=== PATIENT | male | born 1960 | race African-American/Black ===

== ENCOUNTER 2022-04-27 03:34 | Inpatient (IN) | payer MEDICARE, MEDICAID ==
[~2022-04-27] VITALS: Ht 175.3 cm; Wt 71.2 kg
[2022-04-27] VITALS (16 sets, daily range): BP systolic 105–133; BP diastolic 62–101
[2022-04-27] MEDS ORDERED: SODIUM CHLORIDE 0.9% 1,000 ML IV ONE ×2 (05:30→07:15)
[2022-04-27 06:09] LABS: HEMATOCRIT. 22.4 % (42.0-52.0); MEAN CORPUSCULAR HEMOGLOBIN 19.2 pg (28.0-32.0); MEAN CORPUSCULAR VOLUME 63.8 fL (80.0-94.0); MEAN PLATELET VOLUME 7.7 fl (7.4-10.4); PLATELET 363 x1000/uL (130-400); RED BLOOD CELL COUNT 3.51 mill/uL (4.7-6.1); RED CELL DISTRIBUTION WIDTH 21.9 % (11.6-14.6)
[2022-04-27 06:20] LABS: HEMOGLOBIN. 6.8 g/dL (14.0-18.0)
[2022-04-27 06:36] LABS: CREATINE KINASE 79 IU/L (39-308)
[2022-04-27 06:56] LABS: CHLORIDE 73 mEq/L (98-107)
[2022-04-27] MEDS ORDERED: PANTOPRAZOLE SODIUM 40 MG/VIAL IV ONE (07:00)
[2022-04-27] MEDS ORDERED: ONDANSETRON HCL 4MG/2ML INJ IV ONE (07:15)
[2022-04-27 07:47] LABS: PLATELET ESTIMATE NORMAL
[2022-04-27] MEDS ORDERED: POTASSIUM CHLORIDE 20MEQ TABLET SR PO ONE (08:00)
[2022-04-27] MEDS ORDERED: POTASSIUM CHLORIDE INJ 40 MEQ in DEXT 5% WATER 250 ML IV ONE (08:00)
[2022-04-27] MEDS: KCL 20MEQ/100ML PREMIX 100 ML IV SCH ×2 (08:30→13:54)
[2022-04-27 08:51] LABS: ETHANOL BLOOD 225 mg/dL
[2022-04-27] MEDS ORDERED: OCTREOTIDE 1,000 MCG in SODIUM CHLORIDE 0.9% 98 ML IV SCH (09:15)
[2022-04-27] MEDS ORDERED: DEXT 5%/0.45% NACL KCL 10MEQ/L 1,000 ML IV ONE (09:15)
[2022-04-27] MEDS ORDERED: PANTOPRAZOLE 80 MG in SODIUM CHLORIDE 0.9% 100 ML IV SCH ×2 (09:30→09:45)
[2022-04-27] MEDS ORDERED: LORAZEPAM 2MG/ML CPJ IV PRN (11:15)
[2022-04-27] MEDS: ONDANSETRON HCL 4MG/2ML INJ IV PRN ×2 (11:32→21:40)
[2022-04-27] MEDS ORDERED: FOLIC ACID 1 MG, THIAMINE HCL 100 MG, MVI, ADULT NO.1 10 ML in DEXTROSE 5% WATER 1,000 ML IV ONE ×4 (12:30)
[2022-04-27] MEDS: OCTREOTIDE 1,000 MCG in SODIUM CHLORIDE 0.9% 98 ML IV SCH (15:04)
[2022-04-27] MEDS ORDERED: POTASSIUM CHLORIDE 20MEQ TABLET SR PO NR ×2 (17:23→20:30)
[2022-04-27 17:34] LABS: HEMATOCRIT 24.8 % (42.0-52.0); HEMOGLOBIN 7.9 g/dL (14.0-18.0)
[2022-04-27] MEDS: PANTOPRAZOLE SODIUM 40 MG/VIAL IV SCH (17:46)
[2022-04-27] MEDS: CEFTRIAXONE 1,000 MG in DEXTROSE 5% WATER 50 ML IV SCH (21:41)
[2022-04-27] MEDS: KCL 20MEQ/100ML PREMIX 100 ML IV NR (21:41)
[2022-04-28] VITALS (7 sets, daily range): BP systolic 90–124; BP diastolic 58–68
[2022-04-28] MEDS: KCL 20MEQ/100ML PREMIX 100 ML IV NR (02:33)
[2022-04-28 06:16] LABS: HEMATOCRIT. 25.2 % (42.0-52.0); HEMOGLOBIN. 8.1 g/dL (14.0-18.0); MEAN CORPUSCULAR HEMOGLOBIN 22.3 pg (28.0-32.0); MEAN CORPUSCULAR VOLUME 69.4 fL (80.0-94.0); MEAN PLATELET VOLUME 7.8 fl (7.4-10.4); PLATELET 300 x1000/uL (130-400); RED BLOOD CELL COUNT 3.63 mill/uL (4.7-6.1); RED CELL DISTRIBUTION WIDTH 25.9 % (11.6-14.6)
[2022-04-28] MEDS: OCTREOTIDE 1,000 MCG in SODIUM CHLORIDE 0.9% 98 ML IV SCH (06:39)
[2022-04-28 06:51] LABS: CHLORIDE 84 mEq/L (98-107); TOTAL IRON BINDING CAPACITY 304 ug/dL (250-450)
[2022-04-28] MEDS: PANTOPRAZOLE SODIUM 40 MG/VIAL IV SCH ×2 (08:21→18:09)
[2022-04-28 15:27] LABS: CLARITY URINE CLEAR (CLEAR); COLOR URINE YELLOW (YELLOW); KETONES URINE NEGATIVE (NEGATIVE); LEUKOCYTE ESTERASE URINE TRACE (NEGATIVE); NITRITE URINE NEGATIVE (NEGATIVE); OCCULT BLOOD URINE NEGATIVE (NEGATIVE); PH URINE 8.5 (4.5-8.0); PROTEIN URINE TRACE (NEGATIVE); SPECIFIC GRAVITY URINE 1.016 (1.005-1.030)
[2022-04-28 15:53] LABS: *AMPHETAMINES SCREEN URINE NEGATIVE (NEGATIVE); *BARBITURATES SCREEN URINE NEGATIVE (NEGATIVE); *BENZODIAZEPINES SCREEN URINE NEGATIVE (NEGATIVE); *COCAINE SCREEN URINE NEGATIVE (NEGATIVE); CANNABINOID URINE SCREEN NEGATIVE (NEGATIVE); METHADONE URINE SCREEN NEGATIVE (NEGATIVE); OPIATES URINE SCREEN NEGATIVE (NEGATIVE); PHENCYCLIDINE URINE SCREEN NEGATIVE (NEGATIVE)
[2022-04-28] MEDS: CEFTRIAXONE 1,000 MG in DEXTROSE 5% WATER 50 ML IV SCH (20:59)
[2022-04-28 21:33] LABS: PLATELET ESTIMATE NORMAL
[2022-04-29] VITALS (7 sets, daily range): BP systolic 97–114; BP diastolic 57–73
[2022-04-29] MEDS: OCTREOTIDE 1,000 MCG in SODIUM CHLORIDE 0.9% 98 ML IV SCH (01:55)
[2022-04-29] MEDS ORDERED: NALOXONE HCL 0.4MG/ML VIAL IV PRN (04:30)
[2022-04-29] MEDS: ONDANSETRON HCL 4MG/2ML INJ IV PRN (04:57)
[2022-04-29] MEDS: ACETAMINOPHEN WITH CODEINE 300/30MG TABLET PO PRN ×2 (04:58→17:00)
[2022-04-29] MEDS: PANTOPRAZOLE SODIUM 40 MG/VIAL IV SCH ×2 (09:54→21:15)
[2022-04-29 16:19] LABS: HEMATOCRIT. 29.9 % (42.0-52.0); HEMOGLOBIN. 9.2 g/dL (14.0-18.0); MEAN CORPUSCULAR HEMOGLOBIN 21.9 pg (28.0-32.0); MEAN CORPUSCULAR VOLUME 71.4 fL (80.0-94.0); MEAN PLATELET VOLUME 7.3 fl (7.4-10.4); PLATELET 403 x1000/uL (130-400); RED BLOOD CELL COUNT 4.19 mill/uL (4.7-6.1); RED CELL DISTRIBUTION WIDTH 25.7 % (11.6-14.6)
[2022-04-29 16:24] LABS: CHLORIDE 88 mEq/L (98-107)
[2022-04-29 16:30] LABS: PROTHROMBIN TIME 10.8 sec (9.6-11.0)
[2022-04-29] MEDS: SUCRALFATE 1G TABLET PO SCH ×2 (16:31→21:20)
[2022-04-29] MEDS: IRON SUCROSE COMPLEX 100 MG/5 ML ML IV SCH (16:32)
[2022-04-29 16:48] LABS: HEPATITIS B SURFACE ANTIGEN NEGATIVE
[2022-04-29 17:13] LABS: PLATELET ESTIMATE NORMAL
[2022-04-29] MEDS: CEFTRIAXONE 1,000 MG in DEXTROSE 5% WATER 50 ML IV SCH (21:14)
[2022-04-30] VITALS: BP 91/40
[2022-04-30 03:12] LABS: BASOPHILS % 0.6 % (0.0-2.0); HEMATOCRIT. 29.3 % (42.0-52.0); HEMOGLOBIN. 9.1 g/dL (14.0-18.0); LYMPHOCYTES % 15.6 % (20.0-50.0); MEAN CORPUSCULAR HEMOGLOBIN 22.4 pg (28.0-32.0); MEAN CORPUSCULAR VOLUME 71.5 fL (80.0-94.0); MEAN PLATELET VOLUME 7.1 fl (7.4-10.4); MONOCYTES % 13.9 % (2.0-8.0); NEUTROPHILS % 68.9 % (40.0-76.0); PLATELET 392 x1000/uL (130-400); RED BLOOD CELL COUNT 4.09 mill/uL (4.7-6.1); RED CELL DISTRIBUTION WIDTH 26.3 % (11.6-14.6)
[2022-04-30 03:16] LABS: PROTHROMBIN TIME 10.9 sec (9.6-11.0)
[2022-04-30 03:17] LABS: CHLORIDE 93 mEq/L (98-107)
[2022-04-30 04:00] VITALS: BP 101/60
[2022-04-30 04:51] LABS: PLATELET ESTIMATE NORMAL
[2022-04-30] MEDS: SUCRALFATE 1G TABLET PO SCH ×4 (07:30→20:09)
[2022-04-30 08:00] VITALS: BP 97/70
[2022-04-30] MEDS: PANTOPRAZOLE SODIUM 40 MG/VIAL IV SCH ×2 (08:04→20:09)
[2022-04-30] MEDS: IRON SUCROSE COMPLEX 100 MG/5 ML ML IV SCH (11:53)
[2022-04-30 12:00] VITALS: BP 103/68
[2022-04-30] MEDS: MIDODRINE HCL 5MG TABLET PO SCH ×2 (13:00→17:46)
[2022-04-30 15:39] VITALS: BP 97/60
[2022-04-30] MEDS ORDERED: MIDAZOLAM HCL 2 MG/2 ML VIAL ONE (16:25)
[2022-04-30] MEDS ORDERED: LABETALOL 5MG/ML SYR 20 MG/4 ML SYRINGE IV PRN (16:45)
[2022-04-30] MEDS ORDERED: ONDANSETRON HCL 4MG/2ML INJ IV PRN (16:45)
[2022-04-30] MEDS ORDERED: HYDROMORPHONE HCL/PF 2MG/ML CPJ IV PRN (16:45)
[2022-04-30] MEDS ORDERED: MEPERIDINE HCL/PF 25MG/ML CPJ IV PRN (16:45)
[2022-04-30 20:00] VITALS: BP 90/57
[2022-04-30] MEDS: CEFTRIAXONE 1,000 MG in DEXTROSE 5% WATER 50 ML IV SCH (20:08)
[2022-05-01 00:10] VITALS: BP 92/61
[2022-05-01 04:00] VITALS: BP 83/57
[2022-05-01 08:00] VITALS: BP 103/66
[2022-05-01] MEDS: PANTOPRAZOLE SODIUM 40 MG/VIAL IV SCH (08:02)
[2022-05-01] MEDS: SUCRALFATE 1G TABLET PO SCH ×2 (08:02→12:11)
[2022-05-01] MEDS: MIDODRINE HCL 5MG TABLET PO SCH ×2 (08:02→12:11)
[2022-05-01] MEDS ORDERED: FERR-71 MT (10:37)
[2022-05-01] MEDS ORDERED: DOCU250C14 MT (10:37)
[2022-05-01] MEDS ORDERED: MIDO5TAB4 MT (10:45)
[2022-05-01] MEDS: IRON SUCROSE COMPLEX 100 MG/5 ML ML IV SCH (11:13)
[2022-05-01] MEDS ORDERED: FLUDROCORTISONE ACETATE 0.1MG TABLET PO SCH (11:30)
[2022-05-01 11:39] VITALS: BP 100/65
== END 2022-05-01 14:00 | disposition left against medical advice (07) | DRG 377 ==
LOC: EDBD 04:19 → ER 04:19 → ENRESERV 08:08 → 5EST 09:38
PROVIDERS: ADMIT Internal Medicine; ATTEND Internal Medicine
PROC: 02HV33Z Insertion of Infusion Device into Superior Vena Cava, Percutaneous Approach (ICD-10-PCS; principal; 2022-04-27)
PROC: B548ZZA Ultrasonography of Superior Vena Cava, Guidance (ICD-10-PCS; 2022-04-27)
PROC: 30233N1 Transfusion of Nonautologous Red Blood Cells into Peripheral Vein, Percutaneous Approach (ICD-10-PCS; 2022-04-27)
PROC: 0DJ08ZZ Inspection of Upper Intestinal Tract, Via Natural or Artificial Opening Endoscopic (ICD-10-PCS; 2022-04-30)
DX: K29.71 Gastritis, unspecified, with bleeding (principal); E43 Unspecified severe protein-calorie malnutrition; N17.0 Acute kidney failure with tubular necrosis; E87.1 Hypo-osmolality and hyponatremia; E87.6 Hypokalemia; E87.8 Other disorders of electrolyte and fluid balance, not elsewhere classified; Y90.7 Blood alcohol level of 200-239 mg/100 ml; D50.9 Iron deficiency anemia, unspecified; I95.1 Orthostatic hypotension; K44.9 Diaphragmatic hernia without obstruction or gangrene; K57.31 Diverticulosis of large intestine without perforation or abscess with bleeding; K64.8 Other hemorrhoids; K76.0 Fatty (change of) liver, not elsewhere classified; R29.6 Repeated falls; F10.229 Alcohol dependence with intoxication, unspecified; Z60.2 Problems related to living alone; Z20.822 Contact with and (suspected) exposure to COVID-19; Z71.41 Alcohol abuse counseling and surveillance of alcoholic; Z68.23 Body mass index [BMI] 23.0-23.9, adult
CPT/HCPCS: 36415; 36573; 71045; 74176; 76700; 80048; 80053; 80076; 80305; 80320; 81003; 82140; 82550; 82607; 82728; 82746; 83540; 83550; 83735; 84132; 84145; 84484; 85014; 85018; 85025; 86705; 86709; 86803; 86850; 86900; 86920; 87340; 87426; 93005; 97162; 99291; C1725; C9113; J0696; J2060; J2250; J2354; J2405; J3411; J3480; J3490; J7030; J7040; J7050; J7060; J7070; P9016; G0480

== ENCOUNTER 2022-07-21 06:57 | Inpatient (IN) | payer MEDICARE ==
[~2022-07-21] VITALS: Ht 177.8 cm; Wt 71.3 kg
[~2022-07-21 06:57] MED LIST: DOCU250C14 MT; FERR-71 MT; MIDO5TAB4 MT
[2022-07-21] MEDS ORDERED: PANTOPRAZOLE SODIUM 40 MG/VIAL IV ONE (08:00)
[2022-07-21] MEDS ORDERED: ONDANSETRON HCL 4MG/2ML INJ IV ONE (08:00)
[2022-07-21 09:19] LABS: CHLORIDE 93 mEq/L (98-107)
[2022-07-21 09:28] LABS: ETHANOL BLOOD 70 mg/dL
[2022-07-21 09:31] LABS: HEMOGLOBIN. 10.1 g/dL (14.0-18.0); MEAN CORPUSCULAR HEMOGLOBIN 21.4 pg (28.0-32.0); MEAN CORPUSCULAR VOLUME 69.7 fL (80.0-94.0); MEAN PLATELET VOLUME 7.2 fl (7.4-10.4); PLATELET 451 x1000/uL (130-400); RED BLOOD CELL COUNT 4.73 mill/uL (4.7-6.1); RED CELL DISTRIBUTION WIDTH 22.1 % (11.6-14.6)
[2022-07-21 10:40] LABS: PLATELET ESTIMATE INCREASED
[2022-07-21] MEDS ORDERED: PIPERACILLIN/TAZOBACTAM 3.375GM/50ML PREMIX IV NR (14:15)
[2022-07-21] MEDS ORDERED: LEVOFLOXACIN 500MG PREMIX 100 ML IV NR (14:15)
[2022-07-21] MEDS ORDERED: MORPHINE SULFATE 2 MG/ML CPJ (NOT FOR IM USE) IV ONE (15:00)
[2022-07-21 17:06] LABS: CLARITY URINE CLOUDY (CLEAR); COLOR URINE YELLOW (YELLOW); KETONES URINE NEGATIVE (NEGATIVE); LEUKOCYTE ESTERASE URINE 3+ (NEGATIVE); NITRITE URINE POSITIVE (NEGATIVE); OCCULT BLOOD URINE 2+ (NEGATIVE); PROTEIN URINE 1+ (NEGATIVE); SPECIFIC GRAVITY URINE 1.004 (1.005-1.030); UROBILINOGEN URINE 0.2 E.U./dL (0.2-1.0)
[2022-07-21] MEDS ORDERED: ACETAMINOPHEN 325MG TABLET PO PRN (17:30)
[2022-07-21] MEDS ORDERED: LORAZEPAM 2MG/ML CPJ IV PRN (17:30)
[2022-07-21] MEDS ORDERED: DOCUSATE SODIUM 100MG CAPSULE PO PRN (17:30)
[2022-07-21] MEDS ORDERED: MAGNESIUM/ALUMINUM HYDROXIDE/SIMETHICONE 30ML UDC PO PRN (17:30)
[2022-07-21] MEDS ORDERED: TRAMADOL 50MG TABLET PO PRN (17:30)
[2022-07-21] MEDS: PANTOPRAZOLE SODIUM 40 MG/VIAL IV SCH (17:30)
[2022-07-21] MEDS ORDERED: GUAIFENESIN 200MG/10ML SUGAR FREE UDC PO PRN (17:30)
[2022-07-21] MEDS ORDERED: KCL 10MEQ/50ML PREMIX 50 ML IV NR (17:30)
[2022-07-21] MEDS ORDERED: NALOXONE HCL 0.4MG/ML VIAL IV PRN (17:45)
[2022-07-21] MEDS ORDERED: MVI, ADULT NO.1 10 ML, FOLIC ACID 1 MG, THIAMINE HCL 100 MG in SODIUM CHLORIDE 0.9% 1,0... IV ONE ×4 (18:00)
[2022-07-21] MEDS ORDERED: CEFTRIAXONE 1 G PREMIX 50 ML IV NR (18:00)
[2022-07-21] MEDS: ONDANSETRON HCL 4MG/2ML INJ IV PRN (18:32)
[2022-07-21] MEDS: HYDROCODONE/ACETAMINOPHEN 5/325MG TABLET PO PRN (23:31)
[2022-07-22] MEDS: SODIUM CHLORIDE 0.45% 1,000 ML IV SCH (05:30)
[2022-07-22] MEDS: HYDROCODONE/ACETAMINOPHEN 5/325MG TABLET PO PRN ×4 (05:47→22:24)
[2022-07-22 05:53] VITALS: BP 109/62
[2022-07-22 08:00] VITALS: BP 100/63
[2022-07-22] MEDS ORDERED: POTASSIUM CHLORIDE 20MEQ TABLET SR PO NR (08:49)
[2022-07-22] MEDS: CEFTRIAXONE 1,000 MG in DEXTROSE 5% WATER 50 ML IV SCH (08:53)
[2022-07-22] MEDS: MULTIVITAMINS,THER W-MINERALS TABLET PO SCH (08:54)
[2022-07-22] MEDS: FOLIC ACID 1MG TABLET PO SCH (08:54)
[2022-07-22] MEDS: THIAMINE HCL 100MG TABLET PO SCH (08:54)
[2022-07-22] MEDS: AMLODIPINE 10MG TABLET PO SCH (08:54)
[2022-07-22] MEDS: PANTOPRAZOLE SODIUM 40 MG/VIAL IV SCH (08:56)
[2022-07-22] MEDS ORDERED: MAGNESIUM 2 G PREMIX 50 ML IV NR (10:00)
[2022-07-22] MEDS: ONDANSETRON HCL 4MG/2ML INJ IV PRN (11:01)
[2022-07-22 12:00] VITALS: BP 114/71
[2022-07-22 12:44] LABS: *AMPHETAMINES SCREEN URINE NEGATIVE (NEGATIVE); *BARBITURATES SCREEN URINE NEGATIVE (NEGATIVE); *BENZODIAZEPINES SCREEN URINE NEGATIVE (NEGATIVE); *COCAINE SCREEN URINE NEGATIVE (NEGATIVE); CANNABINOID URINE SCREEN PRESUMTIVE POSITIVE (NEGATIVE); METHADONE URINE SCREEN NEGATIVE (NEGATIVE); OPIATES URINE SCREEN PRESUMTIVE POSITIVE (NEGATIVE); PHENCYCLIDINE URINE SCREEN NEGATIVE (NEGATIVE)
[2022-07-22 13:10] LABS: HEMATOCRIT. 30.5 % (42.0-52.0); HEMOGLOBIN. 9.1 g/dL (14.0-18.0); MEAN CORPUSCULAR HEMOGLOBIN 20.9 pg (28.0-32.0); MEAN PLATELET VOLUME 8.1 fl (7.4-10.4); PLATELET 350 x1000/uL (130-400); RED BLOOD CELL COUNT 4.36 mill/uL (4.7-6.1); RED CELL DISTRIBUTION WIDTH 22.4 % (11.6-14.6)
[2022-07-22 14:11] LABS: CHLORIDE 94 mEq/L (98-107)
[2022-07-22 14:21] LABS: HDL CHOLESTEROL 88 mg/dL (40-59); LDL CHOLESTEROL 28 mg/dL (5-100)
[2022-07-22 16:00] VITALS: BP 107/69
[2022-07-22] MEDS: MIDODRINE HCL 5MG TABLET PO SCH (16:11)
[2022-07-22 16:43] LABS: PLATELET ESTIMATE NORMAL
[2022-07-22] MEDS ORDERED: ENOXAPARIN 40MG/0.4ML SYR SUBCUT SCH (17:00)
[2022-07-22 20:00] VITALS: BP 113/77
[2022-07-22 21:46] LABS: HEMATOCRIT. 30.7 % (42.0-52.0); HEMOGLOBIN. 9.5 g/dL (14.0-18.0); MEAN CORPUSCULAR HEMOGLOBIN 21.5 pg (28.0-32.0); PLATELET 363 x1000/uL (130-400); RED BLOOD CELL COUNT 4.45 mill/uL (4.7-6.1)
[2022-07-22 22:36] LABS: PLATELET ESTIMATE NORMAL
[2022-07-22 22:40] LABS: CHLORIDE 97 mEq/L (98-107)
[2022-07-23] VITALS: BP 108/63
[2022-07-23 04:00] VITALS: BP 112/74
[2022-07-23 07:43] LABS: HEMATOCRIT 29.7 % (42.0-52.0); MEAN CORPUSCULAR VOLUME 69.6 fL (80.0-94.0); PLATELET 325 x1000/uL (130-400); RED BLOOD CELL COUNT 4.27 mill/uL (4.7-6.1); RED CELL DISTRIBUTION WIDTH 22.1 % (11.6-14.6)
[2022-07-23 08:00] VITALS: BP 102/77
[2022-07-23 08:11] LABS: CHLORIDE 97 mEq/L (98-107)
[2022-07-23] MEDS ORDERED: DOCUSATE SODIUM 100MG CAPSULE PO NR (08:14)
[2022-07-23] MEDS ORDERED: DOCUSATE SODIUM 250MG CAPSULE PO PRN (08:15)
[2022-07-23] MEDS ORDERED: POTASSIUM CHLORIDE 20MEQ TABLET SR PO NR (08:15)
[2022-07-23 08:17] LABS: PHOSPHORUS 3.2 mg/dL (2.5-4.9)
[2022-07-23] MEDS ORDERED: DOCUSATE SODIUM 100MG CAPSULE PO ONE (08:30)
[2022-07-23] MEDS: AMLODIPINE 10MG TABLET PO SCH (09:00)
[2022-07-23] MEDS: CEFTRIAXONE 1,000 MG in DEXTROSE 5% WATER 50 ML IV SCH (09:05)
[2022-07-23] MEDS: SODIUM CHLORIDE 0.45% 1,000 ML IV SCH ×3 (09:06→22:00)
[2022-07-23] MEDS: MIDODRINE HCL 5MG TABLET PO SCH ×4 (09:06→18:19)
[2022-07-23] MEDS: HYDROCODONE/ACETAMINOPHEN 5/325MG TABLET PO PRN ×2 (09:07→21:45)
[2022-07-23] MEDS: FERROUS SULFATE 325MG TABLET PO SCH ×4 (09:07→18:20)
[2022-07-23] MEDS: MULTIVITAMINS,THER W-MINERALS TABLET PO SCH (09:07)
[2022-07-23] MEDS: FOLIC ACID 1MG TABLET PO SCH (09:08)
[2022-07-23] MEDS: PANTOPRAZOLE SODIUM 40 MG/VIAL IV SCH (09:08)
[2022-07-23] MEDS: THIAMINE HCL 100MG TABLET PO SCH (09:11)
[2022-07-23] MEDS ORDERED: LACTULOSE 20G/30ML UDC PO SCH (11:15)
[2022-07-23] MEDS: DOCUSATE SODIUM 250MG CAPSULE PO SCH (11:15)
[2022-07-23 12:00] VITALS: BP 100/63
[2022-07-23 13:14] LABS: VITAMIN B12 SERUM 1494 pg/mL (211-911)
[2022-07-23] MEDS ORDERED: MECLIZINE 12.5MG TABLET PO PRN (18:15)
[2022-07-23 20:00] VITALS: BP 103/75
[2022-07-23] MEDS ORDERED: MELATONIN 3MG TABLET PO SCH (21:00)
[2022-07-24] VITALS: BP 104/69
[2022-07-24 04:00] VITALS: BP 100/70
[2022-07-24] MEDS: HYDROCODONE/ACETAMINOPHEN 5/325MG TABLET PO PRN ×2 (05:29→12:07)
[2022-07-24 06:56] LABS: HEMATOCRIT. 28.7 % (42.0-52.0); HEMOGLOBIN. 8.9 g/dL (14.0-18.0); MEAN CORPUSCULAR HEMOGLOBIN 21.6 pg (28.0-32.0); MEAN CORPUSCULAR VOLUME 69.6 fL (80.0-94.0); MEAN PLATELET VOLUME 7.7 fl (7.4-10.4); PLATELET 296 x1000/uL (130-400); RED BLOOD CELL COUNT 4.13 mill/uL (4.7-6.1); RED CELL DISTRIBUTION WIDTH 22.2 % (11.6-14.6)
[2022-07-24 08:04] LABS: CHLORIDE 101 mEq/L (98-107)
[2022-07-24] MEDS: DOCUSATE SODIUM 250MG CAPSULE PO SCH (09:00)
[2022-07-24] MEDS: FERROUS SULFATE 325MG TABLET PO SCH (09:02)
[2022-07-24] MEDS: FOLIC ACID 1MG TABLET PO SCH (09:02)
[2022-07-24] MEDS: MULTIVITAMINS,THER W-MINERALS TABLET PO SCH (09:03)
[2022-07-24] MEDS: THIAMINE HCL 100MG TABLET PO SCH (09:03)
[2022-07-24] MEDS: PANTOPRAZOLE SODIUM 40 MG/VIAL IV SCH (09:03)
[2022-07-24] MEDS: MIDODRINE HCL 5MG TABLET PO SCH (09:03)
[2022-07-24] MEDS: CEFTRIAXONE 1,000 MG in DEXTROSE 5% WATER 50 ML IV SCH (09:04)
[2022-07-24] MEDS: AMLODIPINE 10MG TABLET PO SCH (09:04)
[2022-07-24 15:54] VITALS: BP 110/69
[2022-07-25 10:32] LABS: PLATELET ESTIMATE NORMAL
== END 2022-07-24 18:23 | disposition home health service (06) | DRG 315 ==
LOC: ER 06:57 → MICUSO 17:02 → EDBEDREQ 17:09 → EDBEDREQSVC 17:09 → EDBEDREQTM 17:10 → 6EST 07-22 05:21
PROVIDERS: ADMIT Hospitalist; ATTEND Hospitalist
DX: I95.9 Hypotension, unspecified (principal); E44.1 Mild protein-calorie malnutrition; N39.0 Urinary tract infection, site not specified; E87.3 Alkalosis; E78.00 Pure hypercholesterolemia, unspecified; Z20.822 Contact with and (suspected) exposure to COVID-19; E87.6 Hypokalemia; G89.4 Chronic pain syndrome; D50.9 Iron deficiency anemia, unspecified; I10 Essential (primary) hypertension; D72.825 Bandemia; K57.90 Diverticulosis of intestine, part unspecified, without perforation or abscess without bleeding; N19 Unspecified kidney failure; K59.09 Other constipation; F10.10 Alcohol abuse, uncomplicated; Z68.22 Body mass index [BMI] 22.0-22.9, adult; Z79.899 Other long term (current) drug therapy; Z87.19 Personal history of other diseases of the digestive system; Y90.3 Blood alcohol level of 60-79 mg/100 ml
CPT/HCPCS: 36415; 71045; 73502; 73552; 80048; 80053; 80061; 80305; 80320; 81003; 82140; 82270; 82607; 82728; 82962; 83540; 83550; 83735; 84100; 84132; 84443; 85025; 85027; 86850; 86900; 87426; 93005; 97162; 99285; C9113; C9803; J0696; J1956; J2060; J2405; J2543; J3411; J3475; J3480; J3490; J7030; J7060; G0480

== ENCOUNTER 2022-12-14 11:43 | Inpatient (IN) | payer MEDICARE ==
[~2022-12-14] VITALS: Ht 177.8 cm; Wt 66.2 kg
[~2022-12-14 11:43] MED LIST changes: +LURA20TA PO
[2022-12-14 13:14] LABS: CHLORIDE 88 mEq/L (98-107)
[2022-12-14 13:15] LABS: BASOPHILS % 1.5 % (0.0-2.0); EOSINOPHILS % 0.3 % (0.0-5.0); HEMATOCRIT. 30.2 % (42.0-52.0); HEMOGLOBIN. 8.9 g/dL (14.0-18.0); LYMPHOCYTES % 7.2 % (20.0-50.0); MEAN CORPUSCULAR HEMOGLOBIN 18.6 pg (28.0-32.0); MEAN CORPUSCULAR VOLUME 62.7 fL (80.0-94.0); MEAN PLATELET VOLUME 8.6 fl (7.4-10.4); MONOCYTES % 9.4 % (2.0-8.0); NEUTROPHILS % 81.6 % (40.0-76.0); PLATELET 156 x1000/uL (130-400); RED BLOOD CELL COUNT 4.82 mill/uL (4.7-6.1); RED CELL DISTRIBUTION WIDTH 22.7 % (11.6-14.6)
[2022-12-14 13:41] LABS: PLATELET ESTIMATE NORMAL
[2022-12-14] MEDS ORDERED: SODIUM CHLORIDE 0.9% 1,000 ML IV ONE (13:45)
[2022-12-14] MEDS ORDERED: POTASSIUM CHLORIDE INJ 30 MEQ in DEXT 5%/0.9% NACL 1,000 ML IV ONE (14:00)
[2022-12-14] MEDS ORDERED: FAMOTIDINE 20MG/2ML VIAL IV NR (15:15)
[2022-12-14] MEDS ORDERED: ONDANSETRON HCL 4MG/2ML INJ IV ONE (15:15)
[2022-12-14 16:00] VITALS: BP 99/58
[2022-12-14] MEDS ORDERED: POTASSIUM CHLORIDE 20MEQ TABLET SR PO NR (19:00)
[2022-12-14] MEDS ORDERED: LORAZEPAM 2MG/ML CPJ IV PRN (19:00)
[2022-12-14] MEDS ORDERED: ONDANSETRON HCL 4MG/2ML INJ IV PRN (19:00)
[2022-12-14 20:00] VITALS: BP 107/69
[2022-12-14] MEDS ORDERED: FOLIC ACID 1 MG, THIAMINE HCL 100 MG, MVI, ADULT NO.1 10 ML in DEXTROSE 5% WATER 1,000 ML IV ONE ×4 (20:00)
[2022-12-14] MEDS: KETOROLAC 15MG/ML VIAL IV PRN (20:18)
[2022-12-14] MEDS: CHLORDIAZEPOXIDE 25MG CAPSULE PO SCH (21:31)
[2022-12-15] VITALS: BP 115/60
[2022-12-15 04:00] VITALS: BP_SYST 100; BP_SYST 102; BP_DIAS 50; BP_DIAS 66
[2022-12-15] MEDS: KETOROLAC 15MG/ML VIAL IV PRN ×2 (04:48→10:36)
[2022-12-15] MEDS: CHLORDIAZEPOXIDE 25MG CAPSULE PO SCH ×3 (06:12→21:02)
[2022-12-15 06:21] LABS: CHLORIDE 93 mEq/L (98-107)
[2022-12-15 08:17] VITALS: BP_SYST 100; BP_SYST 104; BP_SYST 98; BP_DIAS 62; BP_DIAS 68; BP_DIAS 70
[2022-12-15] MEDS: POTASSIUM CHLORIDE 20MEQ TABLET SR PO SCH (08:31)
[2022-12-15 11:36] VITALS: BP 112/78
[2022-12-15] MEDS: MIDODRINE HCL 5MG TABLET PO SCH ×2 (14:15→17:00)
[2022-12-15] MEDS ORDERED: CHLORPROMAZINE HCL 25 MG TABLET PO PRN (14:15)
[2022-12-15] MEDS ORDERED: TRAMADOL 50MG TABLET PO PRN (14:30)
[2022-12-15] MEDS ORDERED: NALOXONE HCL 0.4MG/ML VIAL IV PRN (14:45)
[2022-12-15 16:13] VITALS: BP 126/84
[2022-12-15] MEDS: HYDROCODONE/ACETAMINOPHEN 5/325MG TABLET PO PRN ×2 (16:16→22:58)
[2022-12-15 20:00] VITALS: BP_SYST 113; BP_SYST 114; BP_SYST 115; BP_DIAS 68; BP_DIAS 77
[2022-12-16] VITALS: BP 112/66
[2022-12-16 04:00] VITALS: BP 101/60
[2022-12-16] MEDS: CHLORDIAZEPOXIDE 25MG CAPSULE PO SCH ×3 (05:55→13:29)
[2022-12-16] MEDS: HYDROCODONE/ACETAMINOPHEN 5/325MG TABLET PO PRN (06:36)
[2022-12-16] MEDS ORDERED: MIDO5TAB4 MT (07:50)
[2022-12-16] MEDS ORDERED: FERR-71 MT (07:50)
[2022-12-16] MEDS ORDERED: DOCU250C14 MT (07:50)
[2022-12-16 08:00] VITALS: BP 112/65
[2022-12-16] MEDS ORDERED: MAGNESIUM OXIDE 400MG TABLET PO SCH (09:00)
[2022-12-16] MEDS: POTASSIUM CHLORIDE 20MEQ TABLET SR PO SCH (09:18)
[2022-12-16] MEDS: MIDODRINE HCL 5MG TABLET PO SCH ×2 (09:35→13:29)
[2022-12-16] MEDS ORDERED: LACTULOSE 20G/30ML UDC PO NR (11:00)
[2022-12-16] MEDS ORDERED: DOCUSATE SODIUM 250MG CAPSULE PO NR (11:00)
[2022-12-16 12:00] VITALS: BP 110/74
[2022-12-16 16:00] VITALS: BP 113/80
[2022-12-16 16:17] VITALS: BP 129/79
== END 2022-12-16 16:00 | disposition home or self-care (01) | DRG 312 ==
LOC: ER 11:50 → 8WST 15:03 → EDBEDREQ 15:09 → EDBEDREQTM 15:09
PROVIDERS: ADMIT Internal Medicine; ATTEND Internal Medicine
DX: I95.1 Orthostatic hypotension (principal); E87.1 Hypo-osmolality and hyponatremia; E87.6 Hypokalemia; Z20.822 Contact with and (suspected) exposure to COVID-19; D64.9 Anemia, unspecified; E78.00 Pure hypercholesterolemia, unspecified; I10 Essential (primary) hypertension; R74.01 Elevation of levels of liver transaminase levels; R29.6 Repeated falls; F10.10 Alcohol abuse, uncomplicated
CPT/HCPCS: 36415; 71045; 80048; 80053; 82962; 83735; 84484; 85025; 87426; 93005; 99285; G0378; J1885; J2060; J2405; J3411; J3480; J3490; J7030; J7042; J7070; Q0161

== ENCOUNTER 2024-08-22 09:20 | Emergency (ER) | payer MEDICARE ==
[~2024-08-22] VITALS: Ht 177.8 cm; Wt 75.0 kg
[~2024-08-22 09:20] MED LIST changes: +DOXE50CA4 PO; -LURA20TA PO; +LURA40TA4 PO; +ONDA4TAB50 MT; +POTA-204 MT
[2024-08-22 09:23] VITALS: O2SAT 98
[2024-08-22] MEDS: ONDANSETRON HCL 4MG/2ML INJ IV STA (09:54)
[2024-08-22] MEDS: LORAZEPAM 2MG/ML INJ IV ONE (09:54)
[2024-08-22] MEDS: MORPHINE SULFATE 4 MG/ML INJ (FOR IV/IM USE) IV STA (09:56)
[2024-08-22] MEDS: SODIUM CHLORIDE 0.9% 1,000 ML IV ONE (09:56)
[2024-08-22 10:02] LABS: HEMATOCRIT. 39.2 % (42.0-52.0); HEMOGLOBIN. 11.7 g/dL (14.0-18.0); MEAN CORPUSCULAR HEMOGLOBIN 19.7 pg (28.0-32.0); MEAN CORPUSCULAR VOLUME 65.8 fL (80.0-94.0); MEAN PLATELET VOLUME 8.6 fl (7.4-10.4); PLATELET 399 x1000/uL (130-400); RED BLOOD CELL COUNT 5.95 mill/uL (4.7-6.1); RED CELL DISTRIBUTION WIDTH 21.2 % (11.6-14.6); WHITE BLOOD COUNT 7.7 x1000/uL (4.5-11.0)
[2024-08-22 10:06] LABS: CHLORIDE 89 mEq/L (98-107); SODIUM 130 mEq/L (136-145)
[2024-08-22 10:07] LABS: CARBON DIOXIDE 31 mEq/L (21-32)
[2024-08-22 10:08] LABS: CALCIUM 9.8 mg/dL (8.7-10.4)
[2024-08-22 10:12] LABS: CREATININE 1.3 mg/dL (0.6-1.3); PROTHROMBIN TIME 11.4 sec (9.6-11.0)
[2024-08-22 10:13] LABS: GLUCOSE 127 mg/dL (70-105); TROPONIN I HIGH SENSITIVITY 8 ng/L (3.0-53); UREA NITROGEN BLOOD 27 mg/dL (9-23)
[2024-08-22 10:14] LABS: ALANINE AMINOTRANSFERASE 82 IU/L (10-49); ALBUMIN 4.5 g/dL (3.2-4.8); ASPARTATE AMINOTRANSFERASE 61 IU/L (<34)
[2024-08-22 10:15] LABS: BILIRUBIN DIRECT 0.5 mg/dL (<=3.0); BILIRUBIN TOTAL 1.7 mg/dL (0.1-1.0); PROTEIN TOTAL 8.5 g/dL (6.0-8.3)
[2024-08-22 10:21] LABS: ETHANOL BLOOD < 10 mg/dL (<10)
[2024-08-22 10:35] LABS: DIFFERENTIAL COMMENT 1
[2024-08-22 11:43] LABS: ANISOCYTOSIS 3+; HYPOCHROMASIA 1+; MICROCYTOSIS 2+; PLATELET ESTIMATE NORMAL
[2024-08-22] MEDS ORDERED: MECLIZINE 25MG TABLET PO ONE (11:45)
[2024-08-22] MEDS: MECLIZINE 25MG TABLET PO NR (13:05)
[2024-08-22] MEDS: POTASSIUM CHLORIDE 20MEQ/PACKET PO ONE (13:06)
[2024-08-22] MEDS: CHLORDIAZEPOXIDE 25MG CAPSULE PO ONE (13:46)
[2024-08-22 14:01] VITALS: BP 100/67; PULSE 91; RESP 22; TEMP 36.89184; O2SAT 99
[2024-08-22 14:25] LABS: CLARITY URINE CLOUDY (CLEAR); COLOR URINE ORANGE (YELLOW); GLUCOSE URINE NEGATIVE (NEGATIVE); KETONES URINE TRACE (NEGATIVE); LEUKOCYTE ESTERASE URINE TRACE (NEGATIVE); NITRITE URINE POSITIVE (NEGATIVE); OCCULT BLOOD URINE NEGATIVE (NEGATIVE); PROTEIN URINE 1+ (NEGATIVE); SPECIFIC GRAVITY URINE 1.028 (1.005-1.030)
[2024-08-22 14:42] LABS: BACTERIA URINE NONE SEEN; HYALINE CASTS URINE 20-30 /lpf; SQUAMOUS EPITHELIAL CELL URINE 1+ /lpf (RARE/1+); WBC URINE 0-2 /hpf (0-2); YEAST URINE NONE SEEN
[2024-08-22 14:46] LABS: *AMPHETAMINES SCREEN URINE NEGATIVE (NEGATIVE); *BARBITURATES SCREEN URINE NEGATIVE (NEGATIVE); *BENZODIAZEPINES SCREEN URINE NEGATIVE (NEGATIVE); *COCAINE SCREEN URINE NEGATIVE (NEGATIVE); CANNABINOID URINE SCREEN PRESUMPTIVE POSITIVE (NEGATIVE); METHADONE URINE SCREEN NEGATIVE (NEGATIVE); OPIATES URINE SCREEN PRESUMPTIVE POSITIVE (NEGATIVE); PHENCYCLIDINE URINE SCREEN NEGATIVE (NEGATIVE)
[2024-08-22 14:47] LABS: ECSTASY MDMA SCREEN URINE NEGATIVE (NEGATIVE)
== END 2024-08-22 14:29 | disposition home or self-care (01) ==
LOC: ER 09:20
DX: R55 Syncope and collapse (principal)
CPT/HCPCS: 80076; 80305; 80048; 81003; 80320; 83690; 85025; 85610; 84484; 36415; 71045; 70450; 74176; 93005; 96361; 96374; 96375; 99285; J8597; J2060; J2405; J2270; J7030; G0480